=== PATIENT | female | born 1990 | race Caucasian/White ===

== ENCOUNTER 2016-12-12 11:58 | Emergency (ER) | payer OTHER ==
[~2016-12-12] VITALS: Ht 157.5 cm; Wt 78.9 kg
[2016-12-12 12:02] VITALS: Ht 157.5 cm; Wt 78.9 kg
[2016-12-12] MEDS ORDERED: D-ME473S18 PO (13:21)
[2016-12-12] MEDS ORDERED: IBUP-1542 PO (13:21)
--- NOTE | 2016-12-12 13:22 | ERD ---
ER Documentation Chief Complaint Date/Time DATE: 12/12/16 TIME: 13:21 Chief Complaint flu x 3 days HPI 26-year-old female presents with cough for last 3 days. She has a fever initially which resolved. She also has mild body aches. She has no vomiting, abdominal pain, diarrhea, neck stiffness, rashes, urinary complaints ROS All systems reviewed and are negative except as per history of present illness. Medications Home Meds Active Scripts Dextromethorphan Hb-Promethazine Hcl (Promethazine DM Syrup) 473 Ml Syrup, 5 ML PO Q6H Y for COUGH, #4 OZ Prov:GRAYSON REDDY MD 12/12/16 Ibuprofen* (Motrin*) 600 Mg Tab, 600 MG PO Q6, #15 TAB Prov:GRAYSON REDDY MD 12/12/16 PMhx/Soc History of Surgery: No Anesthesia Reaction: No Hx Neurological Disorder: No Hx Respiratory Disorders: No Hx Cardiac Disorders: No Hx Psychiatric Problems: No Hx Miscellaneous Medical Probl: No Hx Alcohol Use: No Hx Substance Use: No Hx Tobacco Use: No Physical Exam Vitals Vital Signs Date Time Temp Pulse Resp B/P Pulse Ox O2 Delivery O2 Flow Rate FiO2 12/12/16 12:02 98.1 91 18 129/78 99 Physical Exam Const: [] Alert, [id number] per Head: Atraumatic Eyes: Normal Conjunctiva ENT: Normal External Ears, Nose and Mouth. Neck: Full range of motion..~ No meningismus. Resp: Clear to auscultation bilaterally Cardio: Regular rate and rhythm, no murmurs Abd: Soft, non tender, non distended. Normal bowel sounds Skin: No petechiae or rashes Back: No midline or flank tenderness Ext: No cyanosis, or edema Neur: Awake and alert Psych: Normal Mood and Affect Procedures/MDM Patient presents with URI symptoms which appears to be improving no current fever, likely viral illness. She will treated with ibuprofen and promethazine and further observation at home. The patient was stable with no new complaints during the ER course. Clinically, there is no current evidence to suggest meningitis, sepsis, acute abdomen, pneumonia, acute coronary syndrome, pulmonary embolism, or any other emergent condition appearing to require further evaluation or hospitalization. The patient should certainly return for any new or worsening symptoms per the aftercare instructions. They should otherwise follow-up with her primary care doctor for reevaluation this week. Departure Diagnosis: Primary Impression: Upper respiratory infection URI type: unspecified URI Qualified Code: J06.9 - Upper respiratory tract infection, unspecified type Condition: Stable Patient Instructions: Uri, Viral, No Abx (Adult) Additional Instructions: Likely viral illness should continue to resolve. Recheck for new or worsening symptoms or primary care doctor. GRAYSON REDDY MD Dec 12, 2016 13:22
== END 2016-12-12 13:47 | disposition home or self-care (01) ==
LOC: FTE 11:58
DX: J06.9 Acute upper respiratory infection, unspecified (principal)
CPT/HCPCS: 99283